=== PATIENT | male | born 1980 | race Caucasian/White ===

== ENCOUNTER 2018-11-18 22:28 | Observation (INO) ==
[2018-11-18] MEDS ORDERED: SODIUM CHLORIDE 0.9% 1,000 ML IV STA (22:36)
[2018-11-18 22:45] LABS: Basophils # 0.1 10*3/uL (0.0-0.2); Basophils % 0.7 % (0.0-0.8); Eosinophils # 0.1 10*3/uL (0.0-0.87); Eosinophils % 0.8 % (0.00-10.9); Hematocrit 42.5 VOL% (42.0-52.0); Hemoglobin 14.5 GM/DL (14.0-18.0); Immature Granulocytes % 0.6 %; Immature Granulocytes Absolute 0.09 #; Lymphocytes # 2.3 10*3/uL (1.4-4.0); Lymphocytes % 16.3 % (21.2-54.2); Mean Corpuscular HGB Conc 34.1 GM/DL (32-36); Mean Corpuscular Volume 88.5 FL (87-102); Mean Platelet Volume 9.8 FL (9.6-12.0); Monocytes % 12.1 % (1.7-12.7); Neutrophils % 69.5 % (38.7-73.9); Platelet Count 202 T/CUMM (130-400); Red Cell Distribution Width 12.9 % (9.3-17.3); White Blood Count 14.3 T/CUMM (4-12)
[2018-11-18 23:15] LABS: Albumin 4.3 G/DL (3.4-5.0); Bilirubin,Total 1.7 MG/DL (0.2-1.0); Calcium 8.7 MG/DL (8.5-10.1); Osmolality,Calculated 275.5 MOS/KG (273-304); Total Protein 7.9 G/DL (6.4-8.3)
[2018-11-18 23:20] LABS: Acetaminophen < 2.0 UG/ML (10-30); Lithium 0.3 MMOL/L (0.6-1.2); Salicylate 2.9 MG/DL (2.8-20)
[2018-11-19 03:15] LABS: Barbiturates Screen,Urine Negative (Negative); Benzodiazepines Screen,Urine Negative (Negative); Cannabinoid Screen,Urine Negative (Negative); Opiate Screen,Urine Negative (Negative); Phencyclidine Screen,Urine Negative (Negative)
[2018-11-19 04:08] LABS: Apearance,Urine Slightly Hazy (Clear); Bacteria,Urine Occasional /HPF (Few); Bilirubin,Urine Negative (Negative); Blood, Urine Small mg/dL (Negative); Glucose,Urine (UA) Negative (Negative); Hyaline Casts,Urine 14 /LPF (0-3); Ketones,Urine 20 mg/dL (Negative); Mucus,Urine Occasional /LPF (Occasional); Nitrite,Urine Negative (Negative); Protein,Urine 30 MG/DL; RBC,Urine <1 /HPF (0-4); Sperm,Urine Few /HPF (Negative); Urine Color Amber (Yellow); Urine Specific Gravity 1.024 (1.001-1.035); Urine Urobilinogen < 2.0 EU/DL (0.2-1.0); WBC,Urine 2 /HPF (0-6)
[2018-11-19] MEDS ORDERED: traZODone 50 MG TABLET PO PRN (11:10)
[2018-11-19] MEDS ORDERED: ONDANSETRON 4 MG/2 ML VIAL IV PRN (11:10)
[2018-11-19] MEDS ORDERED: diphenhydrAMINE CAP 25 MG CAPSULE PO PRN (11:10)
[2018-11-19] MEDS ORDERED: NICOTINE 21 MG/24 HR PATCH TRANSDERM PRN (11:10)
[2018-11-19] MEDS ORDERED: ACETAMINOPHEN 325 MG TABLET PO PRN (11:10)
[2018-11-19] MEDS ORDERED: DOCUSATE SODIUM 100 MG CAPSULE PO PRN (11:10)
[2018-11-19 13:19] LABS: Hepatitis B Core IgM Quant < 0.05 Index; Hepatitis B Surface Ag Quant < 0.10 Index; Hepatitis B Surface Ag Result Negative (Negative); Hepatitis C Virus Ab Quant > 11.00 Index; Hepatitis C Virus Ab Result Positive (Negative)
[2018-11-19] MEDS: SODIUM CHLORIDE 0.9% 1,000 ML IV SCH ×2 (15:30→23:02)
[2018-11-19] MEDS: HEPARIN 5,000 UNIT/1 ML VIAL SUBCUT SCH ×2 (15:31→19:17)
[2018-11-20] MEDS: SODIUM CHLORIDE 0.9% 1,000 ML IV SCH ×4 (03:30→20:10)
[2018-11-20] MEDS ORDERED: MORPHINE 4 MG/1 ML VIAL IV ONE (03:43)
[2018-11-20] MEDS ORDERED: MORPHINE 4 MG/1 ML VIAL ONE (03:46)
[2018-11-20] MEDS: HEPARIN 5,000 UNIT/1 ML VIAL SUBCUT SCH ×3 (04:30→20:09)
[2018-11-20 04:57] LABS: Basophils # 0.1 10*3/uL (0.0-0.2); Basophils % 0.8 % (0.0-0.8); Eosinophils # 0.2 10*3/uL (0.0-0.87); Eosinophils % 2.6 % (0.00-10.9); Hematocrit 39.1 VOL% (42.0-52.0); Immature Granulocytes % 0.3 %; Immature Granulocytes Absolute 0.02 #; Lymphocytes # 3.4 10*3/uL (1.4-4.0); Lymphocytes % 44.6 % (21.2-54.2); Mean Corpuscular HGB Conc 33.2 GM/DL (32-36); Mean Corpuscular Volume 91.4 FL (87-102); Mean Platelet Volume 10.6 FL (9.6-12.0); Neutrophils % 41.7 % (38.7-73.9); Platelet Count 165 T/CUMM (130-400); Red Blood Count 4.28 MC/CUMM (3.8-5.5); Red Cell Distribution Width 13.1 % (9.3-17.3); White Blood Count 7.6 T/CUMM (4-12)
[2018-11-20 05:30] LABS: Albumin 3.1 G/DL (3.4-5.0); Osmolality,Calculated 280.4 MOS/KG (273-304); Total Protein 6.1 G/DL (6.4-8.3)
[2018-11-20] MEDS ORDERED: CLINDAMYCIN INJ 600 MG in PREMIX 1 EACH IV ONE (08:06)
[2018-11-20] MEDS: PANTOPRAZOLE 40 MG TABLET PO SCH (08:09)
[2018-11-20] MEDS: BISACODYL 5 MG TABLET PO SCH (08:09)
[2018-11-20] MEDS ORDERED: CLINDAMYCIN INJ 600 MG in PREMIX 1 EACH IV SCH (08:30)
[2018-11-20] MEDS: CLINDAMYCIN 300 MG CAPSULE PO SCH ×2 (13:38→21:02)
[2018-11-20] MEDS ORDERED: TAMSULOSIN 0.4 MG CAPSULE PO SCH (22:00)
[2018-11-21] MEDS: HEPARIN 5,000 UNIT/1 ML VIAL SUBCUT SCH ×2 (04:22→11:13)
[2018-11-21] MEDS: SODIUM CHLORIDE 0.9% 1,000 ML IV SCH (04:23)
[2018-11-21] MEDS: CLINDAMYCIN 300 MG CAPSULE PO SCH ×2 (06:08→13:17)
[2018-11-21] MEDS: BISACODYL 5 MG TABLET PO SCH (09:13)
[2018-11-21] MEDS: PANTOPRAZOLE 40 MG TABLET PO SCH (09:13)
[2018-11-21 15:40] VITALS: BP 121/77
== END 2018-11-21 18:47 ==
LOC: N.EDINP 22:28 → N.ED 22:28 → N.CC 11-19 13:55 → N.5E 11-20 12:20
PROVIDERS: ADMIT Hospitalist; ATTEND Hospitalist